=== PATIENT | male | born 1930 | race Caucasian/White ===

== ENCOUNTER 2017-11-19 09:26 | Day surgery (SDC) | payer OTHER, BC ==
[~2017-11-19] VITALS: Ht 175.3 cm; Wt 83.0 kg
[~2017-11-19 09:26] MED LIST: ADULT LOW DOSE81 M1 PO; ATORVASTATIN CA10 MG PO; CARAFATE100 MG/ML PO; HYDROCODON-ACE1 EAC7 PO; LEVAQUIN500 MG PO; LEVOTHROID,S0.125 MG PO; LO-DOSE ASPIRIN81 M2 PO; LOPRESSOR25 MG PO; PROTONIX40 MG PO; SYNTHROID125 MCG PO; TIROSINT112 MCG PO; TRICOR145 MG PO; TYLENOL EXTRA500 MG PO; ZOCOR20 MG PO; ZOFRAN4 MG PO; [UNRECOGNIZED DRUG - OTHER] PO
== END 2017-11-19 10:48 | disposition home or self-care (01) ==
LOC: PAIN 09:26 → SDC 09:45 → PAIN 09:45
PROC: 3E0R33Z Introduction of Anti-inflammatory into Spinal Canal, Percutaneous Approach (ICD-10-PCS; principal; 2017-11-19)
PROC: 3E0R3BZ Introduction of Anesthetic Agent into Spinal Canal, Percutaneous Approach (ICD-10-PCS; principal; 2017-11-19)
DX: M54.16 Radiculopathy, lumbar region (principal); M48.061 Spinal stenosis, lumbar region without neurogenic claudication; M46.96 Unspecified inflammatory spondylopathy, lumbar region; E03.9 Hypothyroidism, unspecified; E78.5 Hyperlipidemia, unspecified; Z79.82 Long term (current) use of aspirin
CPT/HCPCS: J1100; J2250; J3010